=== PATIENT | male | born 1965 | race Caucasian/White ===

== ENCOUNTER 2024-10-07 08:43 | Outpatient (CLI) | payer OTHER ==
[~2024-10-07 08:43] MED LIST: NABUMETONE500 MG PO; PERCOCET 5-3251 EACH PO
== END 2024-10-07 08:53 | disposition home or self-care (01) ==
LOC: SONOGRAMA 08:43
PROVIDERS: ATTEND Orthopaedic Surgery
DX: M25.512 Pain in left shoulder (principal)